=== PATIENT | female | born 1970 ===

== ENCOUNTER 2025-03-23 13:22 | Outpatient (AMB) | payer OTHER, SELFPAY ==
--- NOTE | 2025-03-23 13:32 | A.OFFVIS_ITS ---
Intake Visit Reasons: ENP-Chronic Migraine Medication List - Last Reconciled 03/23/25 by Rocio Gao MD qszrhge-idyisfzypjtzb-dwxjwdre 250-250-65 mg (Excedrin Extra Strength) 2 tabs PO Q6H PRN ondansetron 4 mg PO Q8H PRN propranolol ER (Inderal LA) 80 mg PO DAILY 30 days simvastatin 10 mg PO DAILY sumatriptan succinate 100 mg PO Q4H PRN HPI Comments Details: This is a 55-year-old woman who started having migraine headaches at the age of 39. The currently occur 1 week in a month frequently related to her menstrual cycle either premenstrual or menstrual and sometimes postmenstrual and they can last 3-4 days up to a week. Besides her menstrual cycle that can be triggered by stress sleep deprivation and skipping a meal. There is no aura preceding the migraine. She describes a throbbing pulsating severe headache in the front of the head involving the forehead and retro-orbital with associated nausea frequent vomiting light and noise sensitivity and sensitivity to smell occasionally with some dizziness and eyelids being heavy. During the migraine she has to be still or go to bed. Any physical activity increases the headache. She denies any history of head trauma. She has a family history of migraines in her mother and maternal grandmother. There is also history of stroke in the family. She sleeps more than 8 hours but her sleep is disrupted because of multiple trips to the bathroom. She has no symptoms of sleep apnea. She drinks 1 cup of coffee a day does not smoke or drink alcohol. She has not had any imaging study done. Many years ago she was given a prescription medicine but she does not remember the name. Nothing else was tried after that. She has been taking Excedrin migraine p.r.n. but there were some concerns about liver and kidney damage. Recently she has been found to have elevated cholesterol and has just started simvastatin 10 mg a day. Review of Systems Const Reports headache(s) ENT Reports dizziness and Reports headache(s) GI Details: Nausea vomiting with migraine Reports nausea and Reports vomiting Neuro Reports dizziness and Reports headache(s) Physical Exam Neuro Other: ?Mini Mental Status Exam Level of Consciousness:?Alert.? Orientation:?Knows correct year, month, date, day and season.?Knows correct city, county and state. Knows correct location and floor.? Registration:?Able to register 3 objects.? Attention:?Serial 7's performed accurately.? Recall:?Able to recall 3 out of 3 objects.? Language:?Normal spontaneous speech, fluency, repetition, naming, comprehension, reading, and writing.? Total Score:?30/30.? Neurological Abnormal neurological findings:??none.? Mental Status:?Alert and oriented X 3.?Normal attention, orientation, memory, and affect.? Cranial Nerves:?Pupils are equal, round and reactive to light. Fundoscopy shows normal disc bilaterally. External occular muscles are intact. Visual headley are full, no ptosis. Face is symmetrical, no facial weakness or droop. Facial sensations are normal. Tongue protrudes in midline. Palate elevates symmetrically. Shoulder shrugging is normal.? Motor Examination:?Normal muscle tone, bulk and strength.?No atrophy or fasciculations.?No drift of the extended upper extremities.?Deep tendon reflexes are 2+.?Plantars are flexor.? Motor Strength:? Proximal Muscles (out of 5):?5 Distal Muscles (out of 5):?5 Neck Flexors (out of 5):?5 Neck Extensors (out of 5):?5 Deltoid (out of 5):?5 Biceps (out of 5):?5 Triceps (out of 5):?5 Serratus Anterior (out of 5):?5 Wrist Extensors (out of 5):?5 APB (out of 5):?5 Finger Spread (out of 5):?5 Ileopsoas (out of 5):?5 Quadriceps (out of 5):?5 Hamstrings (out of 5):?5 Tibialis Anterior (out of 5):?5 Peronei (out of 5):?5 EDB (out of 5):?5 Gastrocnemius (out of 5):?5 Straight Leg Raising:?90 degrees.? Sensory Exam:?Normal light touch, temperature, pinprick, vibration and joint-position sensations.?Rhomberg sign is absent.? Coordination:?No ataxia,?no titubation,?keatwr-rm-iwpl, wsyu-funx-tovw test, and rapid alternating movements were normal.? Gait Exam:?Within normal limits.? Cerebellar Signs:?Fygigp-mq-fbds and goxh-rr-urto is normal.?No dysdiadochokinesia.? Extrapyramidal System:?No tremor or?rigidity, normal facial expressions.?No bradykinesia. No bradyphrenia. Normal arm swing and posture. No propulsion or retropulsion.? Speech:?Normal,?no dysphasia or dysarthria.? General Examination GENERAL APPEARANCE:??normal,?in no acute distress?,?normal,?in no acute distress.? HEAD:??normocephalic,?atraumatic.? EYES:??sclera non-icteric,?conjunctiva clear.? EARS:??auditory canal clear,?tympanic membrane intact, clear.? NOSE:??no lesions.? ORAL CAVITY:??gums normal,?mucosa moist,?no lesions.? THROAT:??clear.? NECK/THYROID:??no cervical lymphadenopathy,?thyroid normal,?neck supple, full range of motion,?no carotid bruit.? SKIN:??no rashes,?no significant birthmarks.? HEART:??S1, S2 normal,?no murmurs?,?S1, S2 normal,?no murmurs.? LUNGS:??clear anteriorly and posteriorly?,?clear anteriorly and posteriorl y.? CHEST:??no gross rib deformity,?clear to auscultation.? BACK:??normal exam of spine.? MUSCULOSKELETAL:??normal.? EXTREMITIES:??no edema?,?no edema.? PERIPHERAL PULSES:??normal.? PSYCH:??alert, oriented,?cognitive function intact,?cooperative with exam?,?alert, oriented,?cognitive function intact,?cooperative with exam.? Assessment & Plan Assessment & Plan (1) Migraine without aura: Code(s): G43.009 - Migraine without aura, not intractable, without status migrainosus Category: Medical Qualifiers: Status migrainosus presence: without status migrainosus Intractability: not intractable Qualified Code(s): G43.009 - Migraine without aura, not intractable, without status migrainosus Plan Propranolol 80 mg qd; Sumatriptan 100mg prn; Ondansetron 4mg prn Medications: New propranolol ER (Inderal LA) 80 mg PO DAILY 30 caps 5RF 30 days ondansetron 4 mg PO Q8H PRN 14 tabs 1RF nausea and vomiting sumatriptan succinate do not exceed 2 doses per 24 hrs 100 mg PO Q4H PRN 10 tabs 3RF Migraine Headache oynrywo-zasfusyujcuhk-hmyujgig 250-250-65 mg (Excedrin Extra Strength) 2 tabs PO Q6H PRN 30 tabs 0RF pain Coding Level of Care Code New Pt Level 5 (15059) Diagnoses Migraine without aura and without status migrainosus, not intractable G43.009 Status migrainosus presence: without status migrainosus Intractability: not intractable
--- OUTSIDE RECORDS SUMMARY | 2025-03-23 16:30 | XMS_ITS ---
Author Name [facility] Organization Unknown Care Team Organization Name Specialty Phone Email Start Date End Da te [facility] Naye De Los Santos [facility] 04/09/2023 12/15/2023 [facility] Nereida Swenson Primary [facility] 03/05/20222023
== END 2025-03-23 13:53 | disposition home or self-care (01) ==
LOC: HO.HSM 13:23
PROVIDERS: PCP Physician Assistant; Visit Provider Psychiatry & Neurology Neurology
DX: G43.009 Migraine without aura, not intractable, without status migrainosus (principal)
CPT/HCPCS: 99205

== ENCOUNTER → 2025-03-23 13:22 | Outpatient (BNVA) | payer OTHER, SELFPAY | PROVIDERS: PCP Physician Assistant; Visit Provider Psychiatry & Neurology Neurology | DX: G43.009 Migraine without aura, not intractable, without status migrainosus (principal) | CPT/HCPCS: 99202 ==